=== PATIENT | male | born 1945 | race Caucasian/White ===

== ENCOUNTER 2022-09-10 22:32 | Inpatient (IN) | payer OTHER ==
[~2022-09-10] VITALS: Ht 182.9 cm; Wt 87.5 kg
[2022-09-10 22:40] VITALS: BP_SYST 116; PULSE 138; RESP 18; TEMP 97.2; O2SAT 98
--- NOTE | 2022-09-10 22:40 | NUR ---
Patient to ER bed 4 to gown for evaluation. Side rails up. Report given to JV WALKER.
[2022-09-10] MEDS ORDERED: NACL 0.9% 1,000 ML IV ONE (22:45)
--- NOTE | 2022-09-10 23:00 | NUR ---
FIRST CONTACT WITH PT. ASSESSMENT COMPLETED. AWAITING EVAL AND ORDERS.
[2022-09-10 23:47] LABS: BASOPHILS # (AUTO) 0.1 K/uL (0.0-0.2); BASOPHILS % (AUTO) 0.6 % (0.0-2.0); EOSINOPHILS # (AUTO) 0.1 K/uL (0.0-0.4); EOSINOPHILS % (AUTO) 0.7 % (0.0-4.0); HEMOGLOBIN 15.4 g/dL (14.0-18.0); LYMPHOCYTES # (AUTO) 0.8 K/uL (1.0-5.5); LYMPHOCYTES % (AUTO) 8.2 % (20.5-51.5); MEAN CORPUSCULAR HEMOGLOBIN 30 pg (27-31); MEAN CORPUSCULAR HGB CONC 34 % (32-36); MEAN CORPUSCULAR VOLUME 91 fL (79.0-98.0); MONOCYTES # (AUTO) 0.8 K/uL (0.0-1.0); MONOCYTES % (AUTO) 7.6 % (1.7-9.3); NEUTROPHILS # (AUTO) 8.3 K/uL (1.8-7.7); NEUTROPHILS % (AUTO) 82.9 % (40.0-70.0); PLATELET COUNT (AUTO) 316 K/uL (130-430); RED BLOOD CELL COUNT(AUTO) 5.07 MIL/uL (4.2-6.2); RED CELL DISTRIBUTION WIDTH 14.9 % (9.0-15.0)
[2022-09-10 23:59] LABS: ANION GAP 7 (5-15); CALCIUM 8.6 mg/dL (8.4-11.0); CHLORIDE 98 mmol/L (98-107); CREATININE 0.95 mg/dL (0.55-1.30); GLUCOSE 101 mg/dL (74-106); UREA NITROGEN, BLOOD 24 mg/dL (8-21)
[2022-09-11] VITALS (8 sets, daily range): BP systolic 110–151; PULSE 97–140; RESP 18–20; TEMP 97.2–99; O2SAT 94–100
[2022-09-11 00:06] LABS: INR 1.1 (0.80-1.20); PROTHROMBIN TIME 11.3 SECS (9.5-12.5)
[2022-09-11 00:07] LABS: ALANINE AMINOTRANSFERASE 4 U/L (12-78); ALBUMIN 3.5 g/dL (3.4-4.8); ASPARTATE AMINOTRANSFERASE 10 U/L (10-37); LACTATE DEHYDROGENASE 110 U/L (85-227); TOTAL BILIRUBIN 0.6 mg/dL (0.0-1.0)
[2022-09-11] MEDS ORDERED: NACL 0.9% 1,000 ML IV ONE (00:30)
--- NOTE | 2022-09-11 01:00 | NUR ---
URINE COLLECTED AND SENT TO LAB.
[2022-09-11 01:47] LABS: BILIRUBIN,URINE NEGATIVE (NEGATIVE); BLOOD, URINE NEGATIVE (NEGATIVE); COLOR,URINE YELLOW (YELLOW); GLUCOSE,URINE NEGATIVE (NEGATIVE); KETONES,URINE TRACE (NEGATIVE); LEUKOCYTE ESTERASE ,URINE NEGATIVE (NEGATIVE); NITRITE, URINE NEGATIVE (NEGATIVE); PH,URINE 5.5 (5.0-8.0); PROTEIN URINE NEGATIVE (NEGATIVE); UROBILINOGEN,URINE 0.2 (0.2-1.0)
[2022-09-11 02:05] LABS: CLARITY/URINE CLEAR (CLEAR)
--- NOTE | 2022-09-11 02:47 | NUR ---
ADMISION ORDERS FROM DR BERMAN.
--- NOTE | 2022-09-11 02:54 | NUR ---
Admit bed requested Patient will be admitted to care of . Admitted to TELE unit. Diagnosis A-FIB Inpatient (Yes or No) Y Observation (Yes or No) N Orientation concerns or request close to nursing station (Yes or No) N Covid Status NA On vent or bipap N Isolation requirements N Needs a sitter N From Home (Yes or if No enter name of facility) Y Requires Dialysis (Yes or No)N Med Rec Completed (Yes of No)Y
[2022-09-11] MEDS ORDERED: iohexoL 350 mgI/mL, 100 ML INFUS..BTL IV ONE (03:03)
[2022-09-11] MEDS ORDERED: DONE10TA44 PO (03:03)
[2022-09-11] MEDS ORDERED: SPIR25TA6 PO (03:03)
[2022-09-11] MEDS ORDERED: MIRA50TA PO (03:03)
[2022-09-11] MEDS ORDERED: DULO60CA65 PO (03:03)
[2022-09-11] MEDS ORDERED: LIP10 PO (03:03)
[2022-09-11] MEDS ORDERED: CARB1TAB33 PO (03:03)
[2022-09-11] MEDS ORDERED: CELE200C PO (03:03)
[2022-09-11 03:28] LABS: INR 1.1 (0.80-1.20); PROTHROMBIN TIME 11.3 SECS (9.5-12.5)
--- NOTE | 2022-09-11 03:45 | NUR ---
PT RETURNED FROM CT ANGIO. PLACED BACK ON ALL MONITORS.
--- NOTE | 2022-09-11 03:55 | NUR ---
MD AT BEDSIDE TO UPDATE FAMILY ON CT RESULTS AND PLAN OF CARE.
--- NOTE | 2022-09-11 04:07 | NUR ---
TELE MED INITIATED WITH NEUROLOGIST
--- NOTE | 2022-09-11 04:14 | NUR ---
TELEMED INTERVIEW CONCLUDED
--- NOTE | 2022-09-11 04:20 | NUR ---
NEUOLOGIST DR MOBLEY DISCUSSED CASE WITH OUR ED MD
[2022-09-11] MEDS ORDERED: ASPIRIN 325 MG TABLET PO ONE (04:30)
--- NOTE | 2022-09-11 04:30 | NUR ---
OUR ED MD ESCOBEDO DISCUSSED ADDITIONAL FINDINGS AND NEURO RECOMENDATIONS WITH ADMITING MD BERMAN.
--- NOTE | 2022-09-11 05:29 | NUR ---
Consultation Paged Reason for Consultation: Afib Was consult called: Y Person who was notified: Monika Consulting Physician: Dr. Rae Ordering Physician: Dr. Cerna
--- NOTE | 2022-09-11 05:43 | NUR ---
Patient will be admitted to care of [facility]. Admitted toTELE unit. Will go to room 133 A Belongings list completed. Complete and up to date summary report printed. SBAR report to be given at bedside with opportunity for questions.
--- NOTE | 2022-09-11 05:45 | NUR ---
NURSE NOTES PATIENT TRANSFERRED FROM ER VIA RNEY TO [facility] 3 PERSONS ASSIST. AND DAUGHTER AT BEDSIDE. VSS. AFEB. TELE WITH AFIB, HR 101. NO C/O PAIN OR DISCOMFORT. ABLE TO ANSWER QUESTIONS FOR ADMISSION. NILA BERTRAND AND JAC WOODS (DAUGHTER) [phone]. DAUGHTER WILL TAKE MOTHER HOME AND DAUGHTER WILL BE BACK. MEDS WILL BE ON MED RECONCILE.
--- NOTE | 2022-09-11 07:20 | NUR ---
NURSE REPORT REPORT GIVEN TO DAYSHIFT NURSES WILFRID AND PEACE TO ASSUME CARE OF PATIENT. DONADL GREER. ALL QUESTIONS ANSWERED. STACI BOONE RN
[2022-09-11] MEDS ORDERED: MORPHINE 2 MG/ML INJ. SYRINGE IVP PRN ×2 (07:45)
[2022-09-11] MEDS ORDERED: ACETAMINOPHEN 325 MG TABLET PO PRN ×2 (07:45→08:45)
[2022-09-11] MEDS ORDERED: POTASSIUM CHLORIDE 20 MEQ TAB.PRT.SR PO PRN (07:45)
[2022-09-11] MEDS ORDERED: LORazepam 2 MG/ML VIAL IVP PRN (07:45)
[2022-09-11] MEDS ORDERED: MAGNESIUM SULFATE 50 ML IV PRN (07:45)
[2022-09-11] MEDS ORDERED: MUPIROCIN 2% TOPICAL OINTMENT 22 GM NS PRN (07:45)
[2022-09-11] MEDS ORDERED: IPRATROPIUM/ALBUTEROL SULFATE 3 ML AMPUL.NEB (DUONEB) INH PRN (07:45)
[2022-09-11] MEDS ORDERED: NALOXONE HCL 0.4 MG/ML AMP (NARCAN) IVP PRN ×2 (07:45)
[2022-09-11] MEDS ORDERED: ZOLPIDEM TARTRATE 5 MG TABLET PO PRN (07:45)
[2022-09-11] MEDS ORDERED: ONDANSETRON HCL 4 MG/2 ML VIAL IVP PRN (07:45)
[2022-09-11 08:15] LABS: ANION GAP 7 (5-15); BASOPHILS % (AUTO) 0.5 % (0.0-2.0); CALCIUM 8.5 mg/dL (8.4-11.0); CHLORIDE 99 mmol/L (98-107); CREATININE 0.79 mg/dL (0.55-1.30); EOSINOPHILS # (AUTO) 0.1 K/uL (0.0-0.4); EOSINOPHILS % (AUTO) 0.9 % (0.0-4.0); GLUCOSE 83 mg/dL (74-106); HEMATOCRIT 47.7 % (36-54); HEMOGLOBIN 15.8 g/dL (14.0-18.0); LYMPHOCYTES # (AUTO) 0.9 K/uL (1.0-5.5); LYMPHOCYTES % (AUTO) 10.6 % (20.5-51.5); MEAN CORPUSCULAR HEMOGLOBIN 30 pg (27-31); MEAN CORPUSCULAR HGB CONC 33 % (32-36); MEAN CORPUSCULAR VOLUME 92 fL (79.0-98.0); MONOCYTES # (AUTO) 0.8 K/uL (0.0-1.0); MONOCYTES % (AUTO) 8.8 % (1.7-9.3); NEUTROPHILS # (AUTO) 6.9 K/uL (1.8-7.7); NEUTROPHILS % (AUTO) 79.2 % (40.0-70.0); PLATELET COUNT (AUTO) 296 K/uL (130-430); RED BLOOD CELL COUNT(AUTO) 5.22 MIL/uL (4.2-6.2); UREA NITROGEN, BLOOD 18 mg/dL (8-21); WHITE BLOOD COUNT (AUTO) 8.7 K/uL (4.8-10.8)
[2022-09-11] MEDS ORDERED: guaiFENesin 200 MG/10 ML UDC PO PRN (08:15)
[2022-09-11 08:27] LABS: ALANINE AMINOTRANSFERASE 10 U/L (12-78); ALBUMIN 3.4 g/dL (3.4-4.8); ASPARTATE AMINOTRANSFERASE 11 U/L (10-37); CHOLESTEROL 89 mg/dL (<200); HDL CHOLESTEROL 57 mg/dL (>45); THYROID STIMULATING HORMONE 1.22 uIu/mL (0.34-4.82); TOTAL BILIRUBIN 0.5 mg/dL (0.0-1.0); TRIGLYCERIDES 46 mg/dL (30-150)
[2022-09-11 08:53] LABS: INR 1.1 (0.80-1.20); PROTHROMBIN TIME 11.6 SECS (9.5-12.5)
[2022-09-11] MEDS ORDERED: ENOXAPARIN SODIUM 30 MG/0.3 ML SYRINGE SUBCUT SCH (09:00)
[2022-09-11] MEDS ORDERED: NON-FORMULARY MEDICATION (Mirabegron (Myrbetriq) 50 MG) PO SCH (09:00)
[2022-09-11] MEDS ORDERED: CARBIDOPA/LEVODOPA 25/100 MG TABLET PO SCH (09:00)
--- NOTE | 2022-09-11 09:30 | NUR ---
PULMO ROUNDS: PATIENT SEEN BY DR RUTLEDGE.CONTINUE WITH CURRENT TREATMENT PER PULMO.FONG OKAY NOT TO BE RE INSERTED IF NOT NEEDED ,MONITOR URINE OUTPUT. DO BLADDER SCAN IF URINE RETENTION AND CALL MD.
[2022-09-11] MEDS: CARBIDOPA/LEVODOPA 25/250 MG TABLET PO SCH ×4 (09:42→21:29)
[2022-09-11] MEDS: DULoxetine HCL 30 MG CAPSULE.DR (CYMBALTA) PO SCH (09:42)
[2022-09-11] MEDS: ATORVASTATIN 10 MG TABLET PO SCH (09:43)
[2022-09-11] MEDS: SPIRONOLACTONE 25 MG TABLET (ALDACTONE) PO SCH (09:47)
[2022-09-11] MEDS: AMIODARONE HCL 200 MG TABLET PO SCH ×2 (09:47→21:04)
[2022-09-11] MEDS: NACL 0.9% 1,000 ML IV SCH ×3 (09:49→20:58)
--- NOTE | 2022-09-11 10:52 | NUR ---
MRI: PATIENT TO MRI VIA GURNEY BY DIRECTOR STYLE IN STABLE CONDITION.
--- NOTE | 2022-09-11 13:20 | NUR ---
Rt Note 1320 Patient NTS both nares. Suction moderate amount of thick yellow secretions. Slight trauma to the left nare but resolved very quickly. Patient is on room air SpO2 93-94%. Family at bedside.
--- NOTE | 2022-09-11 13:30 | NUR ---
DR Maldonado, pt long time primary MD called to ask of pt and to know how he is doing per request. Confirmed from she sent him an e-mail that pt is here.
--- NOTE | 2022-09-11 14:42 | NUR ---
Cardio paged: Spoke with Dr. Rae for elevated heart rate 130's-140s,give Lopressor 5mg ivp once.
[2022-09-11] MEDS ORDERED: METOPROLOL TARTRATE 5 MG/5 ML VIAL IVP ONE (15:00)
--- NOTE | 2022-09-11 19:01 | NUR ---
CLOSING NOTES Pt has uncontrolled A-fib, high heart rate in the 130 and 140's. notified Lopressor 5 mg via I.V given for HR 136. Medication was effective, Heart rate now is 112. and daughter at bedside. Scheduled medication given and pt tolerates well. Fall precaution maintained. Call light in reach.
[2022-09-11] MEDS: DONEPEZIL HCL 5 MG TABLET (ARICEPT) PO SCH (21:04)
[2022-09-12 04:54] LABS: BASOPHILS # (AUTO) 0.3 K/uL (0.0-0.2); BASOPHILS % (AUTO) 1.9 % (0.0-2.0); EOSINOPHILS % (AUTO) 0.2 % (0.0-4.0); HEMATOCRIT 44.9 % (36-54); HEMOGLOBIN 15.1 g/dL (14.0-18.0); LYMPHOCYTES # (AUTO) 0.9 K/uL (1.0-5.5); LYMPHOCYTES % (AUTO) 5.8 % (20.5-51.5); MEAN CORPUSCULAR HEMOGLOBIN 30 pg (27-31); MEAN CORPUSCULAR HGB CONC 34 % (32-36); MEAN CORPUSCULAR VOLUME 91 fL (79.0-98.0); MONOCYTES # (AUTO) 1.1 K/uL (0.0-1.0); NEUTROPHILS # (AUTO) 12.7 K/uL (1.8-7.7); NEUTROPHILS % (AUTO) 85.1 % (40.0-70.0); PLATELET COUNT (AUTO) 293 K/uL (130-430); RED BLOOD CELL COUNT(AUTO) 4.96 MIL/uL (4.2-6.2); RED CELL DISTRIBUTION WIDTH 14.9 % (9.0-15.0)
[2022-09-12 05:07] LABS: ANION GAP 8 (5-15); CALCIUM 8.6 mg/dL (8.4-11.0); CHLORIDE 98 mmol/L (98-107); CREATININE 0.87 mg/dL (0.55-1.30); GLUCOSE 98 mg/dL (74-106); UREA NITROGEN, BLOOD 18 mg/dL (8-21)
--- NOTE | 2022-09-12 06:40 | NUR ---
CLOSING NOTE NO CHANGES. PATIENT REMAINS ON ROOM AIR WITH OXYGEN SATURATION AT 96%. HYGIENE CARE WAS PROVIDED TWICE DURING THE NIGHT, HE ONLY HAD VOIDS, NO BOWEL MOVEMENTS. FRESH LINENS PROVIDED. HE HAS BEEN REPOSITIONED FOR COMFORT. PATIENT TOLERATED WELL AND IS COOPERATIVE TO CARE. WILL CONTINUE TO MONITOR UNTIL REPORT IS GIVEN AT BEDSIDE TO AM NURSE.
[2022-09-12 08:00] VITALS: BP_SYST 116; PULSE 112; RESP 18; TEMP 97.2; O2SAT 98
--- NOTE | 2022-09-12 08:00 | NUR ---
OPENING NOTE; COVID POSITIVE. ISOLATION FOR COVID MAINTAINED. PT RESTING IN BED. NO S/S ACUTE DISTRESS OR PAIN. IVF RUNNING ORDERED. IV SITE REMAIN INTACT AND PATENT. AT BEDSIDE. BED IS LOCKED AND AT LOW POSITION. SAFETY AND ASPIRATION PRECAUTION IN PLACE. ENCOURAGED PT AND TO USE CALL LIGHT FOR ASSISTANCE. WILL CONT TO MONITOR
[2022-09-12 08:21] VITALS: O2SAT 92
[2022-09-12] MEDS: ATORVASTATIN 10 MG TABLET PO SCH (10:16)
[2022-09-12] MEDS: CARBIDOPA/LEVODOPA 25/250 MG TABLET PO SCH ×4 (10:16→22:45)
[2022-09-12] MEDS: DULoxetine HCL 30 MG CAPSULE.DR (CYMBALTA) PO SCH (10:17)
[2022-09-12] MEDS: AMIODARONE HCL 200 MG TABLET PO SCH ×2 (10:24→23:14)
[2022-09-12] MEDS: SPIRONOLACTONE 25 MG TABLET (ALDACTONE) PO SCH (10:25)
[2022-09-12] MEDS: APIXABAN 2.5 MG TABLET PO SCH ×2 (10:28→23:03)
[2022-09-12] MEDS: DEXAMETHASONE SOD PHOSPHATE 10 MG/ML VIAL IVP SCH (10:33)
--- NOTE | 2022-09-12 11:20 | NUR ---
NOTES; PT RESTING IN BED DENIES ANY PAIN OR DISCOMFORT. AT BEDSIDE. IVF RUNNING ORDERED. IV SITE REMAIN INTACT AND PATENT. CALL LIGHT WITHIN REACH. BED ALARM ON. WILL CONT TO MONITOR
[2022-09-12 13:13] VITALS: BP_SYST 101; PULSE 69; RESP 19; TEMP 97.2; O2SAT 97
[2022-09-12 16:00] VITALS: BP_SYST 119; PULSE 109; RESP 19; TEMP 97.9; O2SAT 97
--- NOTE | 2022-09-12 16:30 | NUR ---
NOTES; PT'S REQUESTED FOR BEDPAN. PT UNABLE TO HAVE BM. ABDOMINAL AREA SOFT AND NON DISTENDED. WILL PROVIDE PRN LAXATIVES. LINENS, GOWN, AND PILLOW COVERS WERE CHANGED. PARTIAL BED BATH PROVIDED. PT TOLERATED WELL. WILL CONT TO MONITOR FOR ANY CHANGES.
--- NOTE | 2022-09-12 16:37 | NUR ---
Dietitian Recommendations * Continue Cardiac diet, chocolate Ensure HP TID (ONS yields 1050 kcals and 60 g PRO daily). * Snacks BID * Encourage good PO intakes w/ maximum assistance NAOMIE BLISS Please refer to Nutritional Assessment for further details. Addendum: 09/12/22 at [address] Amended: Links added.
[2022-09-12] MEDS: DOCUSATE SODIUM 100 MG CAPSULE PO PRN (17:11)
--- NOTE | 2022-09-12 17:30 | NUR ---
NOTES; SPOKE WITH REGARDING THE USE OF CONDOM CATH. FOLLOW HOSPITAL POLICY PER . CHARGE NURSE AGREES WITH THE USE OF CONDOM CATH. WILL CARRY OUT ORDER. PT TOLERATED WELL
[2022-09-12] MEDS: NACL 0.9% 1,000 ML IV SCH (17:37)
--- NOTE | 2022-09-12 17:50 | NUR ---
CM faxed DC referral to [facility]. They will accept patient . isolation bed assignment pending. CM notified pt and gave her [facility] address and number.
--- NOTE | 2022-09-12 19:20 | NUR ---
CLOSING NOTE; COVID POSITIVE. ISOLATION FOR COVID MAINTAINED. PT RESTING IN BED. NO S/S ACUTE DISTRESS OR PAIN. IVF RUNNING ORDERED. IV SITE REMAIN INTACT AND PATENT. SAFETY AND ASPIRATION PRECAUTION IN PLACE. ENCOURAGED PT AND TO USE CALL LIGHT FOR ASSISTANCE. ENDORSED CARE TO GUIDE TRAVEL NURSE.
[2022-09-12 19:40] VITALS: BP_SYST 126; PULSE 72; RESP 18; TEMP 97.8; O2SAT 90
[2022-09-12] MEDS: DONEPEZIL HCL 5 MG TABLET (ARICEPT) PO SCH (22:46)
[2022-09-13] VITALS (7 sets, daily range): BP systolic 119–133; PULSE 76–111; RESP 16–18; TEMP 96.8–97.2; O2SAT 96–98
[2022-09-13 05:25] LABS: BASOPHILS % (AUTO) 0.1 % (0.0-2.0); HEMATOCRIT 45.8 % (36-54); HEMOGLOBIN 15.3 g/dL (14.0-18.0); LYMPHOCYTES # (AUTO) 0.7 K/uL (1.0-5.5); LYMPHOCYTES % (AUTO) 4.9 % (20.5-51.5); MEAN CORPUSCULAR HEMOGLOBIN 30 pg (27-31); MEAN CORPUSCULAR HGB CONC 33 % (32-36); MEAN CORPUSCULAR VOLUME 91 fL (79.0-98.0); MONOCYTES # (AUTO) 0.8 K/uL (0.0-1.0); MONOCYTES % (AUTO) 5.6 % (1.7-9.3); NEUTROPHILS # (AUTO) 12.3 K/uL (1.8-7.7); NEUTROPHILS % (AUTO) 89.4 % (40.0-70.0); PLATELET COUNT (AUTO) 322 K/uL (130-430); RED BLOOD CELL COUNT(AUTO) 5.06 MIL/uL (4.2-6.2); RED CELL DISTRIBUTION WIDTH 14.6 % (9.0-15.0); WHITE BLOOD COUNT (AUTO) 13.8 K/uL (4.8-10.8)
[2022-09-13] MEDS: NACL 0.9% 1,000 ML IV SCH ×2 (05:39→17:27)
[2022-09-13 06:17] LABS: ALANINE AMINOTRANSFERASE 8 U/L (12-78); ANION GAP 8 (5-15); ASPARTATE AMINOTRANSFERASE 17 U/L (10-37); CALCIUM 9.2 mg/dL (8.4-11.0); CHLORIDE 98 mmol/L (98-107); CREATININE 0.82 mg/dL (0.55-1.30); GLUCOSE 113 mg/dL (74-106); TOTAL BILIRUBIN 0.7 mg/dL (0.0-1.0); UREA NITROGEN, BLOOD 20 mg/dL (8-21)
--- NOTE | 2022-09-13 06:30 | NUR ---
CLOSING NOTE PATIENT WAS MORE ENERGETIC DURING THE NIGHT, HE WAS ACTIVELY HOLDING EYE CONTACT AND ABLE TO ANSWER QUESTIONS WITH SHORT ANSWERS. HE REMAINS ON ROOM AIR SATURATION AT 96% O2. HYGIENE CARE WAS PROVIDED THROUGHOUT THE NIGHT, FRESH LINENS PROVIDED. HE HAS BEEN REPOSITIONED FOR COMFORT. PATIENT TOLERATED WELL AND IS COOPERATIVE TO CARE. WILL CONTINUE TO MONITOR UNTIL REPORT IS GIVEN AT BEDSIDE TO AM NURSE.
--- NOTE | 2022-09-13 08:00 | NUR ---
OPENING NOTE; COVID POSITIVE. ISOLATION FOR COVID MAINTAINED. PT RESTING IN BED. NO S/S ACUTE DISTRESS OR PAIN. IVF RUNNING ORDERED. IV SITE REMAIN INTACT AND PATENT. SAFETY AND ASPIRATION PRECAUTION IN PLACE. ENCOURAGED PT AND TO USE CALL LIGHT FOR ASSISTANCE. WILL CONT TO MONITOR FOR ANY CHANGES
[2022-09-13] MEDS: APIXABAN 2.5 MG TABLET PO SCH ×2 (08:37→22:58)
[2022-09-13] MEDS: ATORVASTATIN 10 MG TABLET PO SCH (08:39)
[2022-09-13] MEDS: DULoxetine HCL 30 MG CAPSULE.DR (CYMBALTA) PO SCH (08:40)
[2022-09-13] MEDS: CARBIDOPA/LEVODOPA 25/250 MG TABLET PO SCH ×4 (08:40→22:55)
[2022-09-13] MEDS: AMIODARONE HCL 200 MG TABLET PO SCH ×2 (08:46→22:55)
[2022-09-13] MEDS: SPIRONOLACTONE 25 MG TABLET (ALDACTONE) PO SCH (08:46)
--- NOTE | 2022-09-13 10:35 | NUR ---
NOTES; PROVIDED IV ATB AND IV DECADRON ORDERED. EXPLAINED THE PT AND FAM AT BEDSIDE REGARDING THE INDICATION OF MEDICATIONS GIVEN. PT TOLERATED WELL.
[2022-09-13] MEDS: cefTRIAXone 1 GM in D5W 50 ML IV SCH (10:41)
[2022-09-13] MEDS: DEXAMETHASONE SOD PHOSPHATE 10 MG/ML VIAL IVP SCH (10:41)
[2022-09-13] MEDS ORDERED: AZITHROMYCIN 250 MG TABLET PO ONE (10:45)
--- NOTE | 2022-09-13 13:46 | NUR ---
PHYSICAL THERAPY CO-SIGN The Physical Therapy Progress Notes documented by Tray Line Supervisor have been reviewed. Reviewed/Co-Signed by: Tomas Adam Documentation Done by:OSMIN HAINES Addendum: 09/13/22 at 1347 by Tomas Adam PT Amended: Links added.
--- NOTE | 2022-09-13 13:47 | NUR ---
NOTES; PT RESTING IN BED, FAMILY WENT OUT FOR PT'S POSSIBLE REHAB FACILITIES. FAMILY WILL BE BACK IN 2 HOURS. PT RESTING IN BED BREATHING NON-LABORED AND REGULAR ON ROOM AIR. DENIES ANY PAIN OR DISCOMFORT. PROVIDED MEDS ORDERED. WILL CONT TO MONITOR FOR ANY CHANGES.
[2022-09-13] MEDS: DOCUSATE SODIUM 100 MG CAPSULE PO PRN (13:49)
--- NOTE | 2022-09-13 16:40 | NUR ---
Spoke w/ patient's -She wants SNF in the [place]-Near her home and [facility]. She will look for a SNF in [place] and speak to Dr Cerna about her SNF choice. Patient is accepted at [facility]
--- NOTE | 2022-09-13 17:30 | NUR ---
NOTES; PT HAD BM, CONDOM CATH WAS LOOSELY HANGING AT THE TIP OF PENIS. PROVIDED GOOD KONG CARE, REATTACHED NEW CONDOM CATH. PT TOLERATED WELL. LINEN, GOWN, PILLOW CASES WERE CHANGED. PT TOLERATED WELL.
--- NOTE | 2022-09-13 18:36 | NUR ---
CLOSING NOTE; COVID POSITIVE. ISOLATION FOR COVID MAINTAINED. PT RESTING IN BED, BREATHING NON-LABORED AND REGULAR ON ROOM AIR. NO S/S ACUTE DISTRESS OR PAIN. IVF RUNNING ORDERED. IV SITE REMAIN INTACT AND PATENT. SAFETY AND ASPIRATION PRECAUTION IN PLACE. CONDOM CATH INTACT. ENCOURAGED PT AND TO USE CALL LIGHT FOR ASSISTANCE. WILL ENDORSE CARE TO CAP SEWER NURSE.
--- NOTE | 2022-09-13 19:15 | NUR ---
change of shift.pt.presents isolation;droplet covid19+status.02-sat%=96%@room air.pt.absent respiratory distress pt.presents parkinson's temors active.pt.presents iv access location lt.antecubital intact;patent iv fluids infusing. pt.presents condom cath intact.call light/telephone w/in access of the pt.
--- NOTE | 2022-09-13 20:00 | NUR ---
pt.assessed.v/s assessed values wnl.02-sat%=96%.pt.absent respiratory distress.per flacc pain mgx pt.absent facial grimaces body posturing.iv access intact;patent,condom cath intact.pt.assessed for cleanliness pt.repositioned.call light/telephone placed w/in access of the pt.
--- NOTE | 2022-09-13 21:00 | NUR ---
2100p medications administered.medications required crushed mixture apple sauce.pt.ingested the po medications w/out difficulty.per flacc pain mgx pt.absent facial grimaces/body posturing.pt.absent respiratory distress.02-sat%=96%.call light/ telephone w/in access of the pt.
[2022-09-13] MEDS: DONEPEZIL HCL 5 MG TABLET (ARICEPT) PO SCH (22:55)
--- NOTE | 2022-09-14 | NUR ---
pt.assessed.pt.quiescent;resting.02-sat%=96%@room air.per flacc pain mgx pt.absent facial grimaces/body posturing. pt.assessed for cleanliness.pt.repositioned.call light/telephone placed w/in access of the pt.
[2022-09-14 00:14] VITALS: BP_SYST 132; PULSE 76; RESP 18; TEMP 97; O2SAT 98
--- NOTE | 2022-09-14 02:00 | NUR ---
pt.assessed.pt.presented restlessness/agitation.pt.removed cardio monitor patches,iv access.iv access re-established; #24g rt.hand.ativan;1mg ivp administered.to assess the efficacy of the medication per medication protocol.pt.assessed for cleanliness.pt.repositioned.call light/telephone palced win access of the pt.
--- NOTE | 2022-09-14 03:00 | NUR ---
pt.assessed.pt.quiescent;somnolent.per flacc pain mgx pt.absent facial grimaces/body posturing.02-sat%=96%@room air.call light/telephone w/in access of the pt.
--- NOTE | 2022-09-14 06:00 | NUR ---
pt.assessed.pt.quiescent;somnolent.02-sat%=96%.per flacc pain mgx pt.absent facial grimaces/body posturing. iv access intact,copndom cath intact;patent.pt.repositioned.call light/telephone placed w/in access of the pt.
[2022-09-14] MEDS: NACL 0.9% 1,000 ML IV SCH ×2 (06:06→18:02)
[2022-09-14 07:05] LABS: BASOPHILS % (AUTO) 0.2 % (0.0-2.0); EOSINOPHILS % (AUTO) 0.1 % (0.0-4.0); HEMATOCRIT 44.9 % (36-54); HEMOGLOBIN 14.9 g/dL (14.0-18.0); LYMPHOCYTES # (AUTO) 0.8 K/uL (1.0-5.5); LYMPHOCYTES % (AUTO) 5.1 % (20.5-51.5); MEAN CORPUSCULAR HEMOGLOBIN 30 pg (27-31); MEAN CORPUSCULAR HGB CONC 33 % (32-36); MEAN CORPUSCULAR VOLUME 90 fL (79.0-98.0); MONOCYTES % (AUTO) 6.3 % (1.7-9.3); NEUTROPHILS # (AUTO) 14.6 K/uL (1.8-7.7); NEUTROPHILS % (AUTO) 88.3 % (40.0-70.0); PLATELET COUNT (AUTO) 339 K/uL (130-430); RED BLOOD CELL COUNT(AUTO) 4.98 MIL/uL (4.2-6.2); RED CELL DISTRIBUTION WIDTH 14.8 % (9.0-15.0); WHITE BLOOD COUNT (AUTO) 16.5 K/uL (4.8-10.8)
[2022-09-14 07:33] LABS: ANION GAP 8 (5-15); CALCIUM 8.7 mg/dL (8.4-11.0); CHLORIDE 99 mmol/L (98-107); CREATININE 0.77 mg/dL (0.55-1.30); GLUCOSE 113 mg/dL (74-106); UREA NITROGEN, BLOOD 19 mg/dL (8-21)
[2022-09-14 08:00] VITALS: BP_SYST 130; PULSE 89; RESP 18; TEMP 97.2; O2SAT 93
[2022-09-14] MEDS: cefTRIAXone 1 GM in D5W 50 ML IV SCH (09:57)
[2022-09-14] MEDS: AZITHROMYCIN 250 MG TABLET PO SCH (09:57)
[2022-09-14] MEDS: ATORVASTATIN 10 MG TABLET PO SCH (09:57)
[2022-09-14] MEDS: DEXAMETHASONE SOD PHOSPHATE 10 MG/ML VIAL IVP SCH (09:57)
[2022-09-14] MEDS: CARBIDOPA/LEVODOPA 25/250 MG TABLET PO SCH ×4 (09:57→22:55)
[2022-09-14] MEDS: DULoxetine HCL 30 MG CAPSULE.DR (CYMBALTA) PO SCH (09:58)
[2022-09-14] MEDS: SPIRONOLACTONE 25 MG TABLET (ALDACTONE) PO SCH (09:58)
[2022-09-14] MEDS: AMIODARONE HCL 200 MG TABLET PO SCH ×2 (09:58→22:58)
[2022-09-14] MEDS: APIXABAN 2.5 MG TABLET PO SCH ×2 (09:59→22:59)
[2022-09-14 12:00] VITALS: BP_SYST 116; PULSE 109; RESP 19; TEMP 98.1; O2SAT 97
--- NOTE | 2022-09-14 15:17 | NUR ---
MEDICATION PATIENT SCHEDULED MEDICATION GIVEN.PATIENT IS AWAKE AND ALERT SITTING UP IN BED.TOLERATED MEDICATION WELL. PATIENT HAS DAUGHTER AT BEDSIDE. EDUCATED TREATING INSPECTOR LIGHT FOR ASSISTANCE.
[2022-09-14 16:57] VITALS: BP_SYST 121; PULSE 98; RESP 18; TEMP 97.8; O2SAT 94
[2022-09-14 18:37] VITALS: PULSE 98; O2SAT 94
--- NOTE | 2022-09-14 19:30 | NUR ---
OPENING NOTE Pt is awake lying in bed. No s/s of respiratory distress on RA. Breathing even and unlabored on RA. Pt is on COVID19 isolation. No complaints of pain or discomfort at this time. IV site intact with fluids running at ordered rate. Bed locked in lowest position, bed alarm on, and call light within reach
[2022-09-14 20:00] VITALS: BP_SYST 133; PULSE 84; RESP 18; TEMP 98; O2SAT 95
[2022-09-14] MEDS: DONEPEZIL HCL 5 MG TABLET (ARICEPT) PO SCH (22:58)
[2022-09-15] VITALS (7 sets, daily range): BP systolic 129–154; PULSE 69–90; RESP 17–20; TEMP 97.3–98.1; O2SAT 93–98
--- NOTE | 2022-09-15 00:15 | NUR ---
ROUNDS Pt awake, keeps taking his gown off. Pt turned and repositioned. Fall and safety checks in place
--- NOTE | 2022-09-15 02:30 | NUR ---
IV INSERTIONS Pt pulled out IV. New one inserted in the right hand 22g
--- NOTE | 2022-09-15 06:47 | NUR ---
CLOSING NOTE Pt is awake lying in bed. No s/s of respiratory distress on RA. Breathing even and unlabored on RA. No complaints of pain or discomfort at this time. IV site intact with fluids running at ordered rate. All needs met throughout shift. Bed locked in lowest position, bed alarm on, and call light within reach
[2022-09-15] MEDS: NACL 0.9% 1,000 ML IV SCH ×2 (07:00→21:17)
--- NOTE | 2022-09-15 07:43 | NUR ---
rn opening note report was endorsed by night nurse. patient is resting in bed with visible chest rise and fall no signs of any distress. patient has all safety precautions in place. call light is with in reach. no other needs at this time.
[2022-09-15 08:56] LABS: ANION GAP 6 (5-15); CALCIUM 8.6 mg/dL (8.4-11.0); CHLORIDE 99 mmol/L (98-107); CREATININE 0.78 mg/dL (0.55-1.30); GLUCOSE 98 mg/dL (74-106); UREA NITROGEN, BLOOD 18 mg/dL (8-21)
[2022-09-15 08:57] LABS: BASOPHILS % (AUTO) 0.1 % (0.0-2.0); EOSINOPHILS % (AUTO) 0.1 % (0.0-4.0); HEMATOCRIT 46.4 % (36-54); HEMOGLOBIN 15.7 g/dL (14.0-18.0); LYMPHOCYTES % (AUTO) 5.8 % (20.5-51.5); MEAN CORPUSCULAR HEMOGLOBIN 31 pg (27-31); MEAN CORPUSCULAR HGB CONC 34 % (32-36); MEAN CORPUSCULAR VOLUME 90 fL (79.0-98.0); MONOCYTES # (AUTO) 1.3 K/uL (0.0-1.0); MONOCYTES % (AUTO) 7.6 % (1.7-9.3); NEUTROPHILS # (AUTO) 14.7 K/uL (1.8-7.7); NEUTROPHILS % (AUTO) 86.4 % (40.0-70.0); PLATELET COUNT (AUTO) 392 K/uL (130-430); RED BLOOD CELL COUNT(AUTO) 5.16 MIL/uL (4.2-6.2); RED CELL DISTRIBUTION WIDTH 14.8 % (9.0-15.0)
[2022-09-15] MEDS: AMIODARONE HCL 200 MG TABLET PO SCH ×2 (09:28→21:14)
[2022-09-15] MEDS: SPIRONOLACTONE 25 MG TABLET (ALDACTONE) PO SCH (09:29)
[2022-09-15] MEDS: DULoxetine HCL 30 MG CAPSULE.DR (CYMBALTA) PO SCH (09:29)
[2022-09-15] MEDS: ATORVASTATIN 10 MG TABLET PO SCH (09:29)
[2022-09-15] MEDS: DEXAMETHASONE SOD PHOSPHATE 10 MG/ML VIAL IVP SCH (09:29)
[2022-09-15] MEDS: AZITHROMYCIN 250 MG TABLET PO SCH (09:30)
[2022-09-15] MEDS: cefTRIAXone 1 GM in D5W 50 ML IV SCH (09:30)
--- NOTE | 2022-09-15 09:30 | NUR ---
MEDICATION PATIENTS SCHEDULED MEDICATION GIVEN PER ORDER. PATIENT IS AWAKE AND ALERT IS AT BEDSIDE. TOLERATED MEDICATION WELL. PATIENT SHOWS NO SIGNS OF ANY DISTRESS, BREATHING IS EQUAL AND NON LABORED. EDUCATED PAWN SHOP KEEPER LIGHT FOR ASSISTANCE. CALL LIGHT IS WITH HIM. INCONTINENCE CARE PROVIDED NEEDED. NO OTHER NEEDS AT THIS TIME.
[2022-09-15] MEDS: APIXABAN 2.5 MG TABLET PO SCH ×2 (09:32→21:17)
[2022-09-15] MEDS: CARBIDOPA/LEVODOPA 25/250 MG TABLET PO SCH ×4 (09:40→21:00)
--- NOTE | 2022-09-15 11:07 | NUR ---
Nutrition F/U RD reviewed pts current EMR including diet hx, physician notes, nursing notes, pertinent labs/meds/procedures, care trends and care activity. Admitting Diagnosis FTT Medical History Comment: Per EMR (09/11): 77 YOM who presented to the ER w/ increasing weakness, frequent near-falls, and fevers/chills/cough/congestions. COVID results came out positive along with AFibr. Pt also found to have edema per head CT, FTT, hypernatremia, possible recent stroke. SARS-CoV-2 Ag Positive on 09/11. Per LOS meeting, pt is to be D/C on 09/14. - PMHx: Parkinson's disease, arthritis, HTN, dyslipidemia. Per MD Cerna: Possible D/C to SNF. Subjective Information RD deferred pt visit to reduce COVID [address] s/w pts RN, Kaci. RN said patient is eating ok, that he drinks Ensure ONS well, and that family is bringing him Ensures. RD stated that she would like to add Ensure HP to diet order, RN agreed. RN reports that pt is having loose BM but no other GI issues at this time. RN said pt will likely be transferred to SNF in the next few days. Per EMR review: abd soft, non-distended, w/ active bowel sounds; Jose 14 w/ redness on sacrum; LABS: WBC 16.5 H, Na 132 L, BG 113 H, CRP >90.0 H. Current Diet Order/Nutrition Support Cardiac, puree x 3 days % PO intake Poor avg of 44% x 9 meal records (improving) Last BM 09/14 x 1 Estimated Energy Expenditure (kcals/day) 7586-2778 (25-30 kcal/kg CBW [88kg] d/t FTT) Estimated Protein Required (g/day) 88-106 (1-1.2 g/kg CBW d/t GERIAT status) Estimated Fluid Required (l/day) 2.2-2.6 (1mL/kcal d/t GERIAT maintenance) Problem/Etiology/Signs/Symptoms * Inadequate oral intake R/T self-feeding difficulty and poor appetite AEB avg PO intakes of 2% x 2 meal records and report pt having issues eating d/t excessive coughing. *improving Expected Outcomes/Goals * Monitor appetite and PO intakes w/ goal of pt meeting >50% of estimated nutritional needs, nutrition-related labs trending WNL, normal GI function and BM regime, skin integrity w/ wt. maintenance. Dietitian Recommendations * Continue Cardiac diet, ordered: chocolate Ensure HP TID (ONS yields 1050 kcals and 60 g PRO daily). * Snacks BID * Encourage good PO intakes w/ maximum assistance Follow up * Moderate risk: f/u in 3-5 days GS, MPH, RD
--- NOTE | 2022-09-15 11:09 | NUR ---
Dietitian Recommendations * Continue Cardiac diet, ordered: chocolate Ensure HP TID (ONS yields 1050 kcals and 60 g PRO daily) * Snacks BID * Encourage good PO intakes w/ maximum assistance GS, MPH, RD Please refer to Nutrition F/U for further details. Thanks!
--- NOTE | 2022-09-15 13:09 | NUR ---
MEDICATION PATIENTS SCHEDULED MEDICATION GIVEN PER ORDER. PATIENT IS AWAKE AND ALERT SITTING UP IN BED , TOLERATED MEDICATION WELL. PATIENT'S SPOUSE IS AT BEDSIDE, EDUCATED USE OF CALL LIGHT CALL LIGHT IS WITH HIM. NO SIGNS OF ANY DISTRESS, NO OTHER NEEDS AT THIS TIME.
--- NOTE | 2022-09-15 16:01 | NUR ---
CM: LVM to Maryann, spouse this am and f/u x2, so far no return call to discuss snf placement, [facility] or [facility] vs snf in [facility].
--- NOTE | 2022-09-15 17:00 | NUR ---
MEDICATION/INCONTINENCE CARE PATIENTS SCHEDULED MEDICATION GIVEN PER ORDER. PATIENT PROVIDED WITH INCONTINENCE CARE NEEDED. PATIENT HAS SPOUSE AT BEDSIDE. EDUCATED PUBLIC HEALTH EDUCATOR LIGHT CALL LIGHT IS WITH HIM.
--- NOTE | 2022-09-15 18:56 | NUR ---
RN CLOSING NOTE FAMILY IS AT BEDSIDE. PATIENT APPEARS TO BE RESTING WITH NO SIGNS OF ANY DISTRESS. BREATHING IS EQUAL AND NON LABORED. PATIENT HAS ALL SAFETY PRECAUTIONS IN PLACE. CALL LIGHT IS WITH IN REACH. EDUCATED TO USE CALL LIGHT FOR ASSISTANCE. NO OTHER NEEDS AT THIS TIME.
--- NOTE | 2022-09-15 19:45 | NUR ---
OPENING NOTE Pt is awake lying in bed. No s/s of respiratory distress, breathing even and unlabored. Pt is on COVID19 isolation. Hygiene care provided. No complaints of pain or discomfort at this time. IV site intact with fluids running at ordered rate. Fall and safety precaution in place. Bed locked in lowest position, bed alarm on, and call light within reach
[2022-09-15] MEDS: DONEPEZIL HCL 5 MG TABLET (ARICEPT) PO SCH (21:14)
[2022-09-16 00:32] VITALS: BP_SYST 149; PULSE 117; RESP 20; TEMP 97.4; O2SAT 97
--- NOTE | 2022-09-16 00:45 | NUR ---
ROUNDS Pt lying in bed, awake and stable. No s/s of respiratory distress, breathing even and unlabored. No complaints of pain or discomfort. Hygiene care provided. PT pulled out LFA IV. R Wrist IV intact and patent, iv fluids infusing. Fall and safety precaution in place. Bed at lowest position, bed alarm on, and call light within reach.
--- NOTE | 2022-09-16 03:52 | NUR ---
ROUNDS Pt laying in bed with eyes closed. No s/s of respiratory distress, breathing even and unlabored. IV intact and patent, fluids infusing. No complaints of pain or discomfort. Fall and safety precautions in place. Bed at lowest position, bed alarm on, and call light within reach.
[2022-09-16 06:48] LABS: BASOPHILS % (AUTO) 0.1 % (0.0-2.0); EOSINOPHILS % (AUTO) 0.1 % (0.0-4.0); HEMATOCRIT 44.1 % (36-54); HEMOGLOBIN 14.9 g/dL (14.0-18.0); LYMPHOCYTES # (AUTO) 1.2 K/uL (1.0-5.5); LYMPHOCYTES % (AUTO) 7.6 % (20.5-51.5); MEAN CORPUSCULAR HEMOGLOBIN 30 pg (27-31); MEAN CORPUSCULAR HGB CONC 34 % (32-36); MEAN CORPUSCULAR VOLUME 89 fL (79.0-98.0); MONOCYTES # (AUTO) 1.1 K/uL (0.0-1.0); MONOCYTES % (AUTO) 7.3 % (1.7-9.3); NEUTROPHILS # (AUTO) 12.9 K/uL (1.8-7.7); NEUTROPHILS % (AUTO) 84.9 % (40.0-70.0); PLATELET COUNT (AUTO) 394 K/uL (130-430); RED BLOOD CELL COUNT(AUTO) 4.97 MIL/uL (4.2-6.2); RED CELL DISTRIBUTION WIDTH 14.7 % (9.0-15.0); WHITE BLOOD COUNT (AUTO) 15.2 K/uL (4.8-10.8)
[2022-09-16 07:14] LABS: ANION GAP 3 (5-15); CALCIUM 8.3 mg/dL (8.4-11.0); CHLORIDE 101 mmol/L (98-107); CREATININE 0.84 mg/dL (0.55-1.30); GLUCOSE 98 mg/dL (74-106); UREA NITROGEN, BLOOD 18 mg/dL (8-21)
--- NOTE | 2022-09-16 07:25 | NUR ---
CLOSING NOTE Pt is awake lying in bed. No s/s of respiratory distress, breathing even and unlabored. Pt is on COVID19 isolation. No complaints of pain or discomfort at this time. IV site intact with fluids running at ordered rate. Fall and safety precaution in place. Bed locked in lowest position, bed alarm on, and call light within reach
--- NOTE | 2022-09-16 07:49 | NUR ---
OPENING NOTES: RECEIVED BEDSIDE SBAR FROM PM SHIFT NURSE, PATIENT IS STABLE NO S/S OF ANY DISTRESS, NON LABOR BREATHING, ABLE TO MAKE NEEDS KNOWN, ALL SAFETY CHECKS DONE AND WILL DO THOUGHT THE DAY BED AT LOW AND LOCKED POSITION CALL LIGHT IN REACH WILL CONT TO MONITOR PATIENT PER ORDERS.
--- NOTE | 2022-09-16 07:49 | NUR ---
PATIENT IS ON ISO FOR COVID-19, PER DR DOMITILA LAI FOR FAMILY TO STAY IN THE ROOM WITH PATIENT. DARNELL SUP AWARE AND ESTRELLITA CARIAS AWARE. PATIENT HAS BEEN EXPLAINED RISK AND BENEFITS OF ISO, AND CONDITION OF COVID-19. ISO PROTECTION IS AVAILABLE TO FAMILY.
[2022-09-16 08:00] VITALS: BP_SYST 133; PULSE 72; RESP 18; TEMP 97.5; O2SAT 96
[2022-09-16 09:00] VITALS: O2SAT 96
[2022-09-16] MEDS ORDERED: AMIODARONE HCL 200 MG TABLET PO SCH (09:00)
[2022-09-16] MEDS: DULoxetine HCL 30 MG CAPSULE.DR (CYMBALTA) PO SCH (09:11)
[2022-09-16] MEDS: DECADRON 4 MG TABLET PO SCH ×2 (09:12→10:59)
[2022-09-16] MEDS: SPIRONOLACTONE 25 MG TABLET (ALDACTONE) PO SCH (09:14)
[2022-09-16] MEDS: AZITHROMYCIN 250 MG TABLET PO SCH (09:15)
[2022-09-16] MEDS: APIXABAN 2.5 MG TABLET PO SCH (09:15)
[2022-09-16] MEDS: ATORVASTATIN 10 MG TABLET PO SCH (09:18)
[2022-09-16] MEDS: CARBIDOPA/LEVODOPA 25/250 MG TABLET PO SCH (09:19)
[2022-09-16] MEDS: NACL 0.9% 1,000 ML IV SCH (10:58)
[2022-09-16] MEDS: cefTRIAXone 1 GM in D5W 50 ML IV SCH (10:59)
[2022-09-16 11:33] VITALS: BP_SYST 136; PULSE 67; RESP 20; TEMP 98.5; O2SAT 96
--- NOTE | 2022-09-16 11:34 | NUR ---
MR BERTRAND WILL BE GOING TO ROOM 19A AT [facility] IN [place] [phone] MEDIC 1 WILL BE PICKING HIM UP AT 2PM. [phone]. I ALSO SENT HIS PACKET TO THE [place] [facility]. WITH NO REPONSE Addendum: 09/16/22 at 1348 by Shital LÓPEZ MR BERTRAND WILL NOW GOING TO ROOM 4 AT [facility]
[2022-09-16 12:25] VITALS: BP_SYST 133; PULSE 72; RESP 16; TEMP 97.5; O2SAT 96
--- NOTE | 2022-09-16 13:00 | NUR ---
REPORT CALLED TO [facility] [phone] SPOKE WITH ZAKIYA CARIAS, MEDIC 1 WILL BE HERE AT 1400. PATIENT WILL BE GOING TO ROOM 4A NOT 19 A
--- NOTE | 2022-09-16 14:39 | NUR ---
PT TRANSFERRED Report given to ZAKIYA CARIAS at [facility]. Transfer packet with Transfer Orders and Medication Reconciliation form given to EMT with report. Exitcare provided. [facility] ID band removed, replaced with ID band with pt's name and . IV catheter STAYED IN All belongings sent with patient. Patient left floor via gurney escorted by EMT in no distress. FAMILY AT BEDSIDE
--- NOTE | 2022-09-16 15:18 | NUR ---
PHYSICAL THERAPY CO-SIGN The Physical Therapy Progress Notes documented by Turbine Technician have been reviewed. Reviewed/Co-Signed by: Tomas Adam Documentation Done by:OSMIN HAINES Addendum: 09/16/22 at 1518 by Tomas Adam PT Amended: Links added.
== END 2022-09-16 14:40 | DRG 56 ==
LOC: SED 22:32 → STU 09-11 02:48 → SMU 09-14 23:12
PROVIDERS: ADMIT General Practice; ATTEND General Practice
DX: G20 Parkinson's disease (principal); G93.41 Metabolic encephalopathy; U07.1 COVID-19; J12.82 Pneumonia due to coronavirus disease 2019; E87.1 Hypo-osmolality and hyponatremia; I48.91 Unspecified atrial fibrillation; I10 Essential (primary) hypertension; E78.5 Hyperlipidemia, unspecified; R29.6 Repeated falls; R62.7 Adult failure to thrive; N32.81 Overactive bladder; F02.80 Dementia in other diseases classified elsewhere, unspecified severity, without behavioral disturbance, psychotic disturbance, mood disturbance, and anxiety; Z99.3 Dependence on wheelchair; Z79.899 Other long term (current) drug therapy; Z86.73 Personal history of transient ischemic attack (TIA), and cerebral infarction without residual deficits; Z79.82 Long term (current) use of aspirin; Z68.26 Body mass index [BMI] 26.0-26.9, adult
CPT/HCPCS: 36415; 70450-TC; 70496; 70498; 70551; 71045; 76376; 80048; 80053; 80061; 81003; 82550; 83037; 83605; 83615; 83735; 83880; 84443; 84484; 85025; 85610-TC; 85730-TC; 87040; 87086; 93005; 93306; 94760; 96360; 97110-GP; 97530-GP; 99291; G0378; J0696; J1100; J1650; J2060; J2270; J3490; J7030; J7060; J8540; Q0144; Q9967